=== PATIENT | male | born 1950 | race Caucasian/White ===

== ENCOUNTER 2021-03-27 00:41 | Day surgery (SDC) | payer MEDICARE, SELFPAY ==
[2021-03-10 14:10] VITALS: BMI 29.0
[2021-03-27 08:42] VITALS: BP 135/82; PULSE 70; RESP 18; TEMP 35.8; O2SAT 99; BMI 29.9
[2021-03-27] MEDS: LACTATED RINGERS 1,000 ML 150 ML IV CONT (08:50)
--- NOTE | 2021-03-27 09:12 | WPDANESEPPF ---
Anes - Initial Pre Proc Eval Procedure: Operation Date: 03/27/21 09:45 Proposed Procedures p Screening Colonoscopy - Andres Brenner MD Date/Time: 03/27/21 09:12 Surgeon: Andres Brenner MD Pre Op Diagnosis: neoplasm screening Patient Data Age: 70 Gender: M Height: 1.83 m Weight: 100.1 kg Last Vital Signs Temp 96.5 F L 03/27/21 08:42 Pulse 70 03/27/21 08:42 Resp 18 03/27/21 08:42 BP 135/82 03/27/21 08:42 Pulse Ox 99 03/27/21 08:42 Allergies Allergy/AdvReac Type Severity Reaction Status Date / Time No Known Allergies Verified 03/27/21 08:41 Home Medications Medication Instructions Recorded Confirmed Type No Home Medications 03/10/21 03/10/21 History Patient hx anesthesia problems: none Family hx anesthesia problems: none Results Review: All pre-operative results and documents have been reviewed as part of the pre-operative evaluation. PMF Social History Social History Smoking status: Never smoker Alcohol intake: current Drinks per week: 2 Living arrangements: with family Gender identity (if verbalized by the patient): Male Sexual Orientation (if Verbalized by the Patient): Straight or Heterosexual Spiritual care concerns: No Anes - Eval Final PreProcedure Day of Procedure 03/27/21 09:12 Patient weight: obese Heart: regular rate and rhythm Lungs: clear to auscultation Airway: Mallampati scale class II Neurological: alert and oriented Last oral intake: >/= 8 hours ASA classification: II Emergent: no Anesthetic plan: proceed Anesthesia type and monitoring: general GIVS and standard monitoring Results Review: All pre-operative results and documents have been reviewed as part of the pre-operative evaluation. Informed Consent: The patient's anesthetic plan and its attendant risks and benefits were discussed with the patient/family/POA. Questions were solicited and answers provided to the satisfaction of the patient/family/POA.
--- NOTE | 2021-03-27 09:34 | WPDGICN ---
Assessment and Plan Assessment and plan (1) Encounter for screening colonoscopy: Code(s): Z12.11 - Encounter for screening for malignant neoplasm of colon Status: Acute Assessment and Plan: Patient presents today for screening colonoscopy. He appears to be at average risk for colon polyps. GI Consult Note Consult date/time: 03/27/21 09:34 HPI: Jt French Jr. is a 70 year old male Presents for screening colonoscopy. Patient's current weight appetite and bowel movements are normal. He denies abdominal pain. He has had no bleeding. Family history is noncontributory. Patient reports some degree of lactose intolerance. Review of Systems Review of Systems: All systems reviewed & are unremarkable except as noted in HPI and below PMFSH Social History Social History Smoking status: Never smoker Alcohol intake: current Drinks per week: 2 Living arrangements: with family Gender identity (if verbalized by the patient): Male Sexual Orientation (if Verbalized by the Patient): Straight or Heterosexual Spiritual care concerns: No Meds Home Medications and Allergies Home Medications Medication Instructions Recorded Confirmed Type No Home Medications 03/10/21 03/10/21 History Allergies Allergy/AdvReac Type Severity Reaction Status Date / Time No Known Allergies Verified 03/27/21 08:41 Vital Signs Vital Signs - 24 hr 03/27/21 08:42 Temperature 96.5 F L Pulse Rate 70 Respiratory Rate 18 Blood Pressure 135/82 Pulse Oximetry 99 Exam Narrative: Physical exam reveals patient be alert. Vital signs stable. HEENT exam is unremarkable. Patient is anicteric. Lungs are clear to auscultation and percussion. Heart is without murmur or extra sounds. Abdominal exam bowel sounds are present soft nontender with no organomegaly. Digital external rectal exam is normal.
[2021-03-27 10:03] VITALS: BP 117/79; PULSE 64; RESP 25; O2SAT 65
[2021-03-27 10:13] VITALS: BP 125/77; PULSE 67; RESP 14; O2SAT 98
[2021-03-27 10:23] VITALS: BP 148/88; PULSE 66; RESP 28; O2SAT 99
== END 2021-03-27 10:34 | disposition home or self-care (01) ==
PROVIDERS: PCP Family Medicine Adolescent Medicine; Visit Provider Internal Medicine Gastroenterology
PROC: 0DJD8ZZ Inspection of Lower Intestinal Tract, Via Natural or Artificial Opening Endoscopic (ICD-10-PCS; CPT 45378; principal; 2021-03-27 09:45)
DX: Z12.11 Encounter for screening for malignant neoplasm of colon (principal); K64.8 Other hemorrhoids; E66.9 Obesity, unspecified; Z68.29 Body mass index [BMI] 29.0-29.9, adult
CPT/HCPCS: G0121; J2704; J7120

== ENCOUNTER 2024-02-14 04:25 | Emergency (ER) | payer MEDICARE, SELFPAY ==
[2024-02-14] VITALS (9 sets, daily range): BP systolic 156–182; BP diastolic 86–87; PULSE 65–78; RESP 16–20; TEMP 36.7–36.8; O2SAT 96–99
--- NOTE | 2024-02-14 05:12 | ED.GENADULT ---
HPI - General Adult General Chief complaint: Recheck/Abnormal Lab/Rx Stated complaint: Epistaxis, High bp, clammy Time Seen by Provider: 02/14/24 04:42 History of Present Illness HPI narrative: Patient is a 73-year-old male who presents to the emergency department this for evaluation after 2 spontaneous nosebleeds at home. Patient states that the 1st 1 occurred around midnight and he was able to get it to stop by holding pressure. Patient states that he had another one at 3:00 a.m. the was also able to get it to stop by applying pressure. Patient was then feeling lightheaded and decided to check his blood pressure and noted that it was elevated. He then decided to come to the emergency department for further evaluation. Upon arrival to the ED, patient's blood pressure was noted to be 172/87 mmHg. Patient does not have any history of high blood pressure and recently saw his primary care physician approximately 1 week and his blood pressure was 120 over 80s. Patient also states that he was never placed on any blood pressure medications. He is also denying any blood thinner use. No active nose bleed noted. Patient denies any chest pain or shortness of breath, any nausea vomiting or abdominal pain. No additional symptoms or concerns at this time. Related Data Allergies Allergy/AdvReac Type Severity Reaction Status Date / Time No Known Allergies Allergy Verified 02/14/24 04:31 Review of Systems Review of Systems: All systems are reviewed and are negative unless stated otherwise in the HPI. COUNT INCLUDES THE [facility] Surgical History Surgical History History of cholecystectomy (2000) Social History Social History Smoking status: Never smoker Alcohol intake: current Drinks per week: 2 Lack of Transportation: No Lack of Food: Never True Current Housing: I Have Housing Concerned About Future Housing: No Difficulty Paying Gas/Electric Bills: No Difficulty Paying for Meds: No Currently Unemployed: No Education: Associate Degree Difficulty w/ Childcare or Family Care: No Living arrangements: with family Gender identity (if verbalized by the patient): Male Sexual Orientation (if Verbalized by the Patient): Straight or Heterosexual Spiritual care concerns: No Exam Narrative: General: Alert, awake, afebrile, in no acute distress. HEENT: PERRL, no rhinorrhea, no post nasal drip, oropharynx clear, no active anterior epistaxis noted. Cardiovascular: Regular rate and rhythm, no murmurs, rubs or gallops, no peripheral edema. Respiratory: Clear to auscultation bilaterally, no tachypnea, no wheezing, no rhonchi, no rubs, no respiratory distress. Abdomen: Soft, nontender, nondistended, no rebound, no guarding, no peritoneal signs. Musculoskeletal: No joint swelling or deformity, normal muscle tone. Skin: No rashes or petechia, no signs of infection. Neurological: Alert and oriented to person, place, and time. Follows all commands. No focal deficits, speech is clear and fluent. Course Vital Signs Vital signs: Vital Signs Temperature 98.1 F 02/14/24 04:29 Pulse Rate 78 02/14/24 04:29 Respiratory Rate 20 02/14/24 04:29 Blood Pressure 172/87 H 02/14/24 04:29 Pulse Oximetry 98 02/14/24 04:29 Oxygen Delivery Room Air 02/14/24 04:29 Temperature 98.1 F 02/14/24 04:29 Pulse Rate 78 02/14/24 04:29 Respiratory Rate 20 02/14/24 04:29 Blood Pressure 172/87 H 02/14/24 04:29 Pulse Oximetry 98 02/14/24 04:29 Oxygen Delivery Room Air 02/14/24 04:29 Medical Decision Making MDM Narrative Medical decision making narrative: The patient was evaluated by myself in the emergency department. History is obtained from patient who is an independent historian and physical exam was performed. External medical records were reviewed at this time. Differential diagnosis consideration
== END 2024-02-14 05:46 | disposition home or self-care (01) ==
LOC: ANHED 05:33
PROVIDERS: Emergency Provider Emergency Medicine; PCP Family Medicine Adolescent Medicine
DX: R04.0 Epistaxis (principal)
CPT/HCPCS: 99281

== ENCOUNTER 2024-02-14 20:54 | Emergency (ER) | payer MEDICARE, SELFPAY ==
[2024-02-14 20:56] VITALS: BP 165/81; PULSE 79; RESP 17; TEMP 36.3; O2SAT 99
[2024-02-14 22:20] VITALS: BP 152/90; PULSE 70; RESP 16; TEMP 36.6; O2SAT 98
--- NOTE | 2024-02-14 23:48 | ED.EPISTAXIS ---
HPI - Epistaxis General Chief complaint: Epistaxis Stated complaint: nose bleed Time Seen by Provider: 02/14/24 23:07 History of Present Illness HPI Narrative: Patient is a 73-year-old male who presents to the emergency department this evening for nose bleed. Patient was seen at our facility earlier this morning for the same symptoms and by the time he arrived to our facility the nose bleed has stopped. Examination revealed no evidence of any vessels needing cauterization. Patient was educated on how to stop the nosebleed at home and provided with nasal and informed that he needs to apply pressure for 20 minutes continuously. Patient states that the bleeding started again this evening around 8:00 p.m. and patient did apply pressure for 20 minutes but states that he was still having the nose bleed so he decided to come to the emergency department. By the time patient arrived, the nosebleed had stopped. Patient states that prior to the nose bleed he usually feels flushed. No additional symptoms or concerns at this time. Related Data Allergies Allergy/AdvReac Type Severity Reaction Status Date / Time No Known Allergies Allergy Verified 02/14/24 20:59 Review of Systems Review of Systems: All systems are reviewed and are negative unless stated otherwise in the HPI. [facility] Surgical History Surgical History History of cholecystectomy (2000) Social History Social History Smoking status: Never smoker Alcohol intake: current Drinks per week: 2 Lack of Transportation: No Lack of Food: Never True Current Housing: I Have Housing Concerned About Future Housing: No Difficulty Paying Gas/Electric Bills: No Difficulty Paying for Meds: No Currently Unemployed: No Education: Associate Degree Difficulty w/ Childcare or Family Care: No Living arrangements: with family Gender identity (if verbalized by the patient): Male Sexual Orientation (if Verbalized by the Patient): Straight or Heterosexual Spiritual care concerns: No Exam Narrative: General: Alert, awake, afebrile, in no acute distress. HEENT: PERRL, no rhinorrhea, no post nasal drip, oropharynx clear, no active epistaxis, no area identified on examination for or steele of the bleeding. Cardiovascular: Regular rate and rhythm, no murmurs, rubs or gallops, no peripheral edema. Respiratory: Clear to auscultation bilaterally, no tachypnea, no wheezing, no rhonchi, no rubs, no respiratory distress. Abdomen: Soft, nontender, nondistended, no rebound, no guarding, no peritoneal signs. Musculoskeletal: No joint swelling or deformity, normal muscle tone. Skin: No rashes or petechia, no signs of infection. Neurological: Alert and oriented to person, place, and time. Follows all commands. No focal deficits, speech is clear and fluent. Course Vital Signs Vital signs: Vital Signs Temperature 97.4 F L 02/14/24 20:56 Pulse Rate 79 02/14/24 20:56 Respiratory Rate 17 02/14/24 20:56 Blood Pressure 165/81 H 02/14/24 20:56 Pulse Oximetry 99 02/14/24 20:56 Oxygen Delivery Room Air 02/14/24 20:56 Temperature 97.8 F 02/14/24 23:56 Pulse Rate 68 02/14/24 23:56 Respiratory Rate 16 02/14/24 23:56 Blood Pressure 150/82 H 02/14/24 23:56 Pulse Oximetry 97 02/14/24 23:56 Oxygen Delivery Room Air 02/14/24 20:56 Procedures Epistaxis Control right: Epistaxis Control Date: 02/15/24 Epistaxis Control Time: 00:02 Time Out Performed: Yes Direct Inspection: yes Cautery Used: none Device Inserted: nasal tampon Patient Tolerated Procedure: well Epistaxis Control Narrative: Rhino rocket size medium placed MDM - Epistaxis MDM Narrative Medical decision making narrative: The patient was evaluated by myself in the emergency department. History is obtained from patient
[2024-02-14 23:56] VITALS: BP 150/82; PULSE 68; RESP 16; TEMP 36.6; O2SAT 97
== END 2024-02-15 00:09 | disposition home or self-care (01) ==
PROVIDERS: Emergency Provider Emergency Medicine; PCP Family Medicine Adolescent Medicine
DX: R04.0 Epistaxis (principal)
CPT/HCPCS: 30901; 99282

== ENCOUNTER 2024-09-26 10:35 | Outpatient (CLI) | payer MEDICARE, SELFPAY | END 2024-09-26 10:36 | disposition home or self-care (01) | LOC: MICIMG 10:36 | PROVIDERS: PCP Family Medicine Adolescent Medicine; Visit Provider Nurse Practitioner Family | DX: M25.561 Pain in right knee (principal) | CPT/HCPCS: 73562 ==